=== PATIENT | male | born 1965 | race African-American/Black ===

== ENCOUNTER → 2024-09-16 11:05 | Outpatient (REF) | payer OTHER, SELFPAY ==
[2024-09-17 16:33] LABS: Mumps Virus IgG Positive; Rubeola (Measles) IgG Positive; Varicella Zoster IgG (VZV) Positive
[2024-09-17 20:22] LABS: Rubella Positive
[2024-09-17 21:28] LABS: Hepatitis B Surface Antibody Positive
[2024-09-18 15:07] LABS: Quantiferon TB Gold Plus Negative (Negative)
== END ==
LOC: OHS 11:05
PROVIDERS: ATTENDING PHYSICIAN Nurse Practitioner Family
DX: Z23 Encounter for immunization (principal)
CPT/HCPCS: 36415; 86480; 86706; 86735; 86762; 86765; 86787